=== PATIENT | male | born 1985 | race Caucasian/White ===

== ENCOUNTER 2020-01-05 22:05 | Emergency (ER) | payer OTHER ==
[~2020-01-05] VITALS: Ht 177.8 cm; Wt 71.8 kg
--- NOTE | 2020-01-05 22:27 | NUR ---
PT CAME INTO ED TONIGHT DUE TO AN EPISODE OF DIZZINESS AND CP ONSET APPROXIMATELY 30 MINS AGO. PT HAS A CARDIOVASCULAR HX WITH AN ATRIAL PACEMAKER. PT DENIES N/V/D, PT STATES HIS DIZZINESS STARTED IN THE SHWOER AND WONT GO AWAY EVEN WHEN HE IS LAYING DOWN. PT STATES CP IS A 2/10 PRESSURE NONRADIATING OR RELIEVED. PT PULSES 2+, PT NAD, GROSS NEURO INTACT. PT PLACED SPO2/BP/ECG MONITORING AT THIS TIME. PT AMBULATED WITH A SMOOTH ADN STEADY GAIT. WCTM. ROMAN JOLLY AT FOR EVAL AND POC.
[2020-01-05] MEDS ORDERED: SODIUM CHLORIDE FLUSH 10ML SYR IVF ONE (22:30)
[2020-01-05] MEDS ORDERED: TRAZODONE HCL PO (22:32)
--- NOTE | 2020-01-05 22:32 | NUR ---
PT IS A POOR HISTORIAN OF MEDICATIONS. UNABLE TO OBTAIN FULL MED REC
[2020-01-05] MEDS ORDERED: MECLIZINE CHEWABLE 25 MG TAB PO ONE (23:00)
[2020-01-05 23:05] LABS: ALANINE AMINOTRANSFERASE 15 U/L (12-78); ALBUMIN 4.1 g/dL (3.4-5.0); ANION GAP 3 mmol/L (5-15); BASOPHILS % (AUTO) 0 % (0-1); CALCIUM 8.8 mg/dL (8.5-10.1); CHLORIDE 105 mmol/L (98-107); CREATININE 0.82 mg/dL (0.7-1.3); EOSINOPHILS % (AUTO) 2 % (1-7); LYMPHOCYTES % (AUTO) 42 % (22-44); MEAN CORPUSCULAR HGB CONC 33.1 g/dL (33.2-36.2); MEAN PLATELET VOLUME 7.2 fL (7.4-10.4); MONOCYTES % (AUTO) 9 % (2-9); NEUTROPHILS % (AUTO) 47 % (42-75); PLATELET COUNT 254 x10^3/uL (130-400)
--- NOTE | 2020-01-05 23:05 | NUR ---
PT SITTING UP IN [place], NAD, NO CHANGE IN CONDITION, VSS, PACE MAKER CHECK IN PROGRESS. WCTM.
[2020-01-05 23:09] LABS: ALKALINE PHOSPHATASE 55 U/L (45-117); BILIRUBIN,TOTAL 0.3 mg/dL (0.2-1.0); TOTAL PROTEIN 7.6 g/dL (6.4-8.2); TROPONIN I < 0.015 ng/mL (0.000-0.045)
--- NOTE | 2020-01-05 23:12 | NUR ---
RN CALLED [facility], STATES THEY WILL FAX REPORT IN THIRTY MINUTES.
[2020-01-05] MEDS ORDERED: MECLIZINE CHEWABLE 25 MG TAB ONE (23:21)
[2020-01-05 23:24] LABS: MD NO
[2020-01-05 23:56] VITALS: BP 108/66
--- NOTE | 2020-01-05 23:58 | NUR ---
Patient given discharge instructions and they have confirmed that they understand the instructions. Patient ambulatory with steady gait. NAD, DENIES ADDITIONAL QUESTIONS OR NEEDS AT THIS TIME. NO PERSONAL BELONGINGS LEFT IN ROOM AT NM.
== END 2020-01-06 00:20 | disposition home or self-care (01) ==
LOC: ED 22:39
DX: R42 Dizziness and giddiness (principal); R55 Syncope and collapse; R53.1 Weakness; R07.9 Chest pain, unspecified; R00.1 Bradycardia, unspecified; J45.909 Unspecified asthma, uncomplicated; Z95.0 Presence of cardiac pacemaker; Z88.8 Allergy status to other drugs, medicaments and biological substances
CPT/HCPCS: 36415; 71045; 80053; 83880; 84484; 85025; 93005; 99283